=== PATIENT | male | born 1995 | race Caucasian/White ===

== ENCOUNTER 2016-07-27 19:18 | Emergency (ER) | payer SELFPAY ==
[2016-07-27] MEDS ORDERED: KETOROLAC 60 MG/2 ML VIAL IM ONE (20:06)
[2016-07-27] MEDS ORDERED: CLINDAMYCIN 600 MG/4 ML VIAL ONE (20:06)
[2016-07-27] MEDS ORDERED: LIDOCAINE 2% VISC 15 ML UDC ONE (20:06)
== END 2016-07-27 20:41 | disposition home or self-care (01) ==
LOC: ER 19:18
CPT/HCPCS: 96372